=== PATIENT | female | born 1975 | race Caucasian/White ===

== ENCOUNTER 2018-04-04 00:28 | Emergency (ER) | payer BC ==
--- NOTE | 2018-04-04 00:41 | EDPHY ---
H & P Stated Complaint: ALLERGIC RX, DIFF SWALLOW/TO CHEMO MED Time Seen by Provider: 04/04/18 00:41 HPI/ROS: HPI CHIEF COMPLAINT: Allergic reaction, itchy rash HISTORY OF PRESENT ILLNESS: Very pleasant 42-year-old female, she has a history of breast cancer currently getting chemotherapy, Dr. De Luna is her oncologist. She has had bilateral mastectomy. In the past she has had allergic reaction to her chemotherapy. She states she woke up this morning around 7:00 a.m. With hives. She took Benadryl, Zantac, and Decadron. States she took this around 830 last night. It is now 12 50 in the morning. Her hives persisted and she is very itchy. Also reports that felt some pain in the back with her when she swallowed. Due to this she decided come the emergency room for evaluation. She has no trouble swelling. No trouble breathing. She does have hives urticaria throughout her skin. No wheezing. No chest pain. Oncologist is Dr. De Luna. Past Medical History: Breast cancer getting chemotherapy Past Surgical History: Bilateral mastectomy Social History: Denies drugs alcohol tobacco. Family History: Noncontributory ROS REVIEW OF SYSTEMS: 10 Systems were reviewed and negative with the exception of the elements mentioned in the history of present illness. Exam Constitutional triage nursing summary reviewed, vital signs reviewed, awake/ alert. Eyes normal conjunctivae and sclera, EOMI, PERRLA. HENT no stridor, no trouble breathing, no trouble swallowing, no pharyngeal swelling, normal inspection, atraumatic, moist mucus membranes, no epistaxis, neck supple/ no meningismus, no raccoon eyes. Respiratory clear to auscultation bilaterally, normal breath sounds, no respiratory distress, no wheezing. Cardiovascular rate normal, regular rhythm, no murmur, no edema, distal pulses normal. Gastrointestinal soft, non-tender, no rebound, no guarding, normal bowel sounds, no distension, no pulsatile mass. Genitourinary no CVA tenderness. Musculoskeletal no midline vertebral tenderness, full range of motion, no calf swelling, no tenderness of extremities, no meningismus, good pulses, neurovascularly intact. Skin Diffuse Urticaria. Neurologic awake, alert and oriented x 3, AAOx3, moves all 4 extremities equally, motor intact, sensory intact, CN II-XII intact, normal cerebellar, normal vision, normal speech. Psychiatric normal mood/affect. Heme/Lymph/Immune no lymphadenopathy. Differential Diagnosis: Includes but is not limited to in a particular order allergic reaction, anaphylaxis, severe allergic reaction, hives Medical Decision Making: Plan for this patient IV establishment blood draw, IV Solu-Medrol, IV Benadryl, IV Pepcid. IV fluids. Basic blood work and close monitoring. Re-evaluation: 0436: Patient is feeling better and requesting discharge. No further progression of allergic reaction she has been monitored for over 4 hr. She feels much better. No trouble swallowing or trouble breathing. The urticaria or hives have improved. Recommend she follows up with her oncologist. Return precautions discussed with her. Source: Patient - Personal History LMP (Females 10-55): 22-28 Days Ago Current Tetanus Diphtheria and Acellular Pertussis (TDAP): Yes - Medical/Surgical History Hx Asthma: No Hx Chronic Respiratory Disease: No Hx Diabetes: No Hx Cardiac Disease: No Hx Renal Disease: No Hx Cirrhosis: No Hx Alcoholism: No Hx HIV/AIDS: No Hx Splenectomy or Spleen Trauma: No Other PMH: L BREAST CA W/ DOUBLE MASTECTOMY, LYMPH NODES REMOVED ON L NO BP OR STICKS ON L - Social History Smoking Status: Never smoked Constitutional: Initial Vital Signs Temperature (C) 37.3 C 04/04/18 00:32 Heart Rate 110 H 04/04/18 00:32 Respiratory Rate 16 04/04/18 00:32 Blood Pressure 130/92 H 04/04/18 00:32 O2 Sat (%) 96 04/04/18 00:32 O2 Delivery Mode Room Air Allergies/Adverse Reactions: tetracycline Allergy (Verified 04/04/18 00:37) Home Medications: Medication Instructions Recorded Ibuprofen [Motrin (*)] 600 mg PO Q6 #15 tab 06/05/16 Claritin 04/04/18 Compazine 10mg (*) 04/04/18 DEXAMETHASONE 04/04/18 diphenhydrAMINE [Benadryl 25 MG 25 mg PO BID #6 tab 04/04/18 (*)] predniSONE 60 mg PO DAILY #9 tab 04/04/18 Medical Decision Making - Data Points Laboratory Results: Laboratory Results 04/04/18 00:49 04/04/18 00:49 04/04/18 04/04/18 00:49 00:49 WBC 22.88 10^3/uL H 10^3/uL (3.80-9.50) RBC 4.13 10^6/uL L 10^6/uL (4.18-5.33) Hgb 12.5 g/dL L g/dL (12.6-16.3) Hct 37.3 % L % (38.0-47.0) MCV 90.3 fL fL (81.5-99.8) MCH 30.3 pg pg (27.9-34.1) MCHC 33.5 g/dL g/dL (32.4-36.7) RDW 16.1 % H % (11.5-15.2) Plt Count 151 10^3/uL 10^3/uL (150-400) MPV 10.6 fL fL (8.7-11.7) Neut % (Auto) Not Reported Lymph % (Auto) Not Reported Jennings % (Auto) Not Reported Eos % (Auto) Not Reported Baso % (Auto) Not Reported Nucleat RBC Rel Count Not Reported Absolute Neuts (auto) Not Reported Absolute Lymphs (auto) Not Reported Absolute Monos (auto) Not Reported Absolute Eos (auto) Not Reported Absolute Basos (auto) Not Reported Absolute Nucleated RBC Not Reported Immature Gran % Not Reported Seg Neutrophils % 75.8 % % Band Neutrophils % 15.1 % % Lymphocytes % 2.0 % % Monocytes % 6.1 % % Eosinophils % 0.0 % % Basophils % 0.0 % % Metamyelocytes % 0.0 % % Myelocytes % 0.0 % % Promyelocytes % 1.0 % % Blast Cells % 0.0 % % Immature Gran # Not Reported Absolute Seg Neuts 17.34 10^/uL H 10^/uL (1.70-6.50) Absolute Band Neuts 3.45 10^3/uL H 10^3/uL (0.00-0.70) Absolute Lymphocytes 0.46 10^3/uL L 10^3/uL (1.00-3.00) Absolute Monocytes 1.40 10^3/uL H 10^3/uL (0.30-0.80) Absolute Eosinophils 0.00 10^3/uL L 10^3/uL (0.03-0.40) Absolute Basophils 0.00 10^3/uL L 10^3/uL (0.02-0.10) Absolute Metamyelocyte 0.00 10^3/mL 10^3/mL (0.00-0.00) Absolute Myelocytes 0.00 10^3/mL 10^3/mL (0.00-0.00) Absolute Promyelocytes 0.23 10^3/uL H 10^3/uL (0.00-0.00) Absolute Plasma Cells 0.00 10^3/uL 10^3/uL (0.00-0.00) Nucleated RBCs 0 /100 WBC /100 WBC (0-0) Absolute Blast Cells 0.00 10^3/uL 10^3/uL (0.00-0.00) Plasma Cells % 0.0 % % Toxic Granulation PRESENT H Dohle Bodies PRESENT H Platelet Estimate ADEQUATE (ADEQ) Polychromasia 1+ H Microcytic Cells 1+ H Harper-Wakeeney Bodies 1+ H Smear Review By Pending Sodium 143 mEq/L mEq/L (135-145) Potassium 4.5 mEq/L mEq/L (3.3-5.0) Chloride 109 mEq/L mEq/L (97-110) Carbon Dioxide 23 mEq/l mEq/l (22-31) Anion Gap 12 mEq/L mEq/L (8-16) BUN 10 mg/dL mg/dL (7-23) Creatinine 0.8 mg/dL mg/dL (0.6-1.0) Estimated GFR > 60 Glucose 125 mg/dL H mg/dL (70-100) Calcium 9.6 mg/dL mg/dL (8.5-10.4) Medications Given: Discontinued Medications Diphenhydramine HCl (Benadryl Injection) 50 mg IVP EDNOW ONE Stop: 04/04/18 00:51 Last Admin: 04/04/18 01:02 Dose: 50 mg Famotidine (Pepcid) 20 mg IVP EDNOW ONE Stop: 04/04/18 00:51 Last Admin: 04/04/18 01:02 Dose: 20 mg Sodium Chloride (Ns) 1,000 mls @ 0 mls/hr IV EDNOW ONE; Wide Open PRN Reason: Protocol Stop: 04/04/18 00:51 Last Admin: 04/04/18 01:00 Dose: 1,000 mls Methylprednisolone Sodium Succinate (Solu-Medrol) 125 mg IVP EDNOW ONE Stop: 04/04/18 00:51 Last Admin: 04/04/18 01:02 Dose: 125 mg Departure - Departure Disposition: Home, Routine, Self-Care Clinical Impression: Allergic reaction Qualifiers: Encounter type: initial encounter Qualified Code(s): T78.40XA - Allergy, unspecified, initial encounter Condition: Good Instructions: Urticaria (ED), Allergies (ED) Additional Instructions: 1. Return emergency room if you have progression of her symptoms. 2. Follow up with your oncologist. Referrals: OZIEL CABRALES [Other] - As per Instructions Prescriptions: diphenhydrAMINE [Benadryl 25 MG (*)] 25 mg PO BID #6 tab predniSONE 60 mg PO DAILY #9 tab
[2018-04-04] MEDS ORDERED: FAMOTIDINE 20 MG/2 ML SDV IVP ONE (00:50)
[2018-04-04] MEDS ORDERED: methylPREDNISolone SOD SUCC 125 MG/2 ML VIAL IVP ONE (00:50)
[2018-04-04] MEDS ORDERED: NS 1,000 ML IV ONE (00:50)
[2018-04-04 01:37] LABS: PLATELET COUNT 151 10^3/uL (150-400)
[2018-04-04 04:59] VITALS: BP 99/67
== END 2018-04-04 04:59 | disposition home or self-care (01) ==
DX: T78.40XA Allergy, unspecified, initial encounter (principal); L50.0 Allergic urticaria; Z85.3 Personal history of malignant neoplasm of breast; Z90.13 Acquired absence of bilateral breasts and nipples
CPT/HCPCS: 96374; J1200; J2930

== ENCOUNTER 2018-04-05 22:07 | Observation (INO) | payer BC ==
--- NOTE | 2018-04-05 22:29 | EDPHY ---
H & P Stated Complaint: allergic reaction since wednesday worst now having difficulty breathing - Personal History LMP (Females 10-55): 15-21 Days Ago Current Tetanus/Diphtheria Vaccine: Yes Current Tetanus Diphtheria and Acellular Pertussis (TDAP): Yes - Medical/Surgical History Hx Asthma: No Hx Chronic Respiratory Disease: No Hx Diabetes: No Hx Cardiac Disease: No Hx Renal Disease: No Hx Cirrhosis: No Hx Alcoholism: No Hx HIV/AIDS: No Hx Splenectomy or Spleen Trauma: No Other PMH: L BREAST CA W/ DOUBLE MASTECTOMY, LYMPH NODES REMOVED ON L NO BP OR STICKS ON L - Social History Smoking Status: Never smoked Time Seen by Provider: 04/05/18 22:15 HPI/ROS: CHIEF COMPLAINT: "I have hives" HISTORY OF PRESENT ILLNESS: 42-year-old female history of breast cancer currently receiving chemotherapy last received on March [address] Kel salazar, seen the ER 24 hr ago for complaints of new onset urticaria given H1 H2 blockers and Solu-Medrol and discharged, saw her oncologist today given further IV infusion of Decadron and Benadryl all, returns to the ER complaining of progressively worsening urticaria. Also notes a new lesion on the palate of her oropharynx as well as new left lower lip swelling. No diarrhea. No nausea or vomiting. No dysuria. No increased frequency. No fever or chills. No flu-like symptoms. No headache. REVIEW OF SYSTEMS: 10 systems reviewed and negative with the exception of the elements mentioned in the history of present illness PAST MEDICAL & SURGICAL HISTORY: Currently receiving treatment for breast cancer. Mastectomy. SOCIAL HISTORY:no alcohol or drug use PHYSICAL EXAM (Prior to examination, patient consented to physical exam, hands were washed and my usual and customary physical exam procedures followed) 1) GENERAL: Well-developed, well-nourished, alert and oriented. Appears to be in no acute distress. 2) HEAD: Normocephalic, atraumatic 3) HEENT: Pupils equal, round, reactive to light bilaterally. Sclera anicteric. Oropharynx: Palate area of erythema noted. No lesion no apthous ulcer. Lower lip edema noted. No trismus no drooling 4) NECK: Full range of motion, no meningeal signs. 5) LUNGS: Clear auscultation bilaterally, no wheezes, no rhonchi, no retractions. No signs of airway compromise. 6) HEART: Regular rate and rhythm, no murmur, no heave, no gallop. 7) ABDOMEN: No guarding, no rebound, no focal tenderness, negative McBurney's, negative Nieto's, negative Rovsing's, negative peritoneal sign, 8) MUSCULOSKELETAL: Moving all extremities, no focal areas of tenderness, no obvious trauma. No peripheral edema or discoloration. 9) BACK: No CVA tenderness, no midline vertebral tenderness, no fluctuance, no step-off, no obvious trauma, no visual or palpable abnormality. 10) SKIN: Diffuse urticaria particularly to the bilateral arms and legs 11) Psychiatric: Patient is oriented X 3, there is no agitation. DIFFERENTIAL DIAGNOSIS: In no particular order including but not limited to medication adverse reaction, urticaria, angioedema, anaphylaxis (Jorge Luis,Angelina Genet) Constitutional: Initial Vital Signs Temperature (C) 37.4 C 04/05/18 22:09 Heart Rate 78 04/05/18 22:09 Respiratory Rate 18 04/05/18 22:09 Blood Pressure 106/82 H 04/05/18 22:09 O2 Sat (%) 100 04/05/18 22:09 O2 Delivery Mode Room Air Allergies/Adverse Reactions: tetracycline Allergy (Verified 04/06/18 08:32) Rash Home Medications: Medication Instructions Recorded Dexamethasone [Decadron 4 MG (*)] 8 mg PO AD 04/04/18 Clobetasol 0.05% [Temovate 1 ivanna TP BID PRN 04/06/18 Ointment] Cyclophosphamide [Cytoxan] 0 mg IV .[id number] 04/06/18 DOCEtaxel [TaxoTERE] 0 mg IV .[id number] 04/06/18 Pegfilgrastim [Neulasta 6mg (RX)] 6 mg SQ .[id number] 04/06/18 Prochlorperazine Maleate 10 mg PO Q8HRS PRN 04/06/18 [Compazine 10mg (*)] diphenhydrAMINE [Benadryl 25 MG 50 mg PO Q6HRS 04/06/18 (*)] Famotidine [Acid Controller] 20 mg PO BID #60 tablet 04/07/18 hydrOXYzine HCL 10 mg PO Q8H PRN #30 tab 04/07/18 predniSONE 20 mg PO DAILY #15 tablet 04/07/18 Medical Decision Making ED Course/Re-evaluation: 10:29 p.m.: I reviewed the patient's old medical records. Patient was also seen exam by Dr. Benny Garcia. Doubt anaphylaxis. Recommending admission given the patient's failure of outpatient therapy and progressive symptoms. Will administer H1 H2 blockers, Solu-Medrol, IV fluids. 11:36 p.m.: Phone consultation with hospitalist Dr. Marvin who will admit patient primarily. Awaiting callback from Oncology. 1150 pm: Oncology re-paged, awaiting callback 12:15 p.m.: Awaiting callback from Oncology who has been paged again (Angelina Kang) - Data Points Laboratory Results: Laboratory Results 04/05/18 22:35 04/05/18 22:35 Medications Given: Discontinued Medications Diphenhydramine HCl (Benadryl Injection) 25 mg IVP EDNOW ONE Stop: 04/05/18 23:00 Last Admin: 04/05/18 23:08 Dose: 25 mg Diphenhydramine HCl (Benadryl Injection) 50 mg IVP EDNOW ONE Stop: 04/05/18 23:00 Last Admin: 04/05/18 23:08 Dose: Not Given Diphenhydramine HCl (Benadryl Injection) 25 mg IVP Q4HRS PRN PRN Reason: Itching Stop: 10/02/18 23:36 Last Admin: 04/06/18 09:41 Dose: 25 mg Diphenhydramine HCl (Benadryl Injection) 25 mg IVP ONCE ONE Stop: 04/06/18 04:43 Last Admin: 04/06/18 04:49 Dose: 25 mg Diphenhydramine HCl (Benadryl Cream) 1 ivanna TP QID PRN PRN Reason: Itching Stop: 10/03/18 09:28 Last Admin: 04/06/18 21:27 Dose: 1 ivanna Diphenhydramine HCl (Benadryl Injection) 25 mg IVP Q8H PRN PRN Reason: Itching Stop: 10/03/18 17:59 Last Admin: 04/07/18 04:18 Dose: 25 mg Enoxaparin Sodium (Lovenox) 40 mg SC Q12 JAYNA Stop: 10/03/18 08:59 Last Admin: 04/07/18 08:36 Dose: Not Given Hydroxyzine HCl (Hydroxyzine Hcl) 10 mg PO Q8H PRN PRN Reason: Itching Stop: 10/03/18 13:59 Last Admin: 04/07/18 08:15 Dose: 10 mg Sodium Chloride (Ns) 1,000 mls @ 0 mls/hr IV ONCE ONE; Wide Open PRN Reason: Protocol Stop: 04/05/18 23:00 Last Admin: 04/05/18 23:07 Dose: 1,000 mls Famotidine/Sodium Chloride (Pepcid 20 Mg (Premix)) 50 mls @ 200 mls/hr IV Q12HRS REPLACED BY [facility] Stop: 10/03/18 08:59 Last Admin: 04/07/18 08:21 Dose: 50 mls Lorazepam (Ativan Injection) 1 mg IVP Q4HRS PRN PRN Reason: Anxiety, Unable to Take PO Stop: 10/03/18 01:13 Last Admin: 04/06/18 01:52 Dose: 1 mg Methylprednisolone Sodium Succinate (Solu-Medrol) 125 mg IVP EDNOW ONE Stop: 04/05/18 23:00 Last Admin: 04/05/18 23:08 Dose: 125 mg Methylprednisolone Sodium Succinate (Solu-Medrol) 60 mg IVP Q6HRS REPLACED BY [facility] Stop: 10/03/18 04:59 Last Admin: 04/07/18 13:02 Dose: Not Given Prednisone (Prednisone) 60 mg PO ONCE ONE Stop: 04/07/18 12:54 Last Admin: 04/07/18 13:00 Dose: 60 mg Ranitidine HCl (Zantac) 50 mg IVP EDNOW ONE Stop: 04/05/18 23:00 Last Admin: 04/05/18 23:08 Dose: 50 mg Departure - Departure Disposition: [facility] Acute Clinical Impression: Urticaria, History of breast cancer Condition: Fair
[2018-04-05] MEDS ORDERED: methylPREDNISolone SOD SUCC 125 MG/2 ML VIAL IVP ONE (22:59)
[2018-04-05] MEDS ORDERED: NS 1,000 ML IV ONE (22:59)
[2018-04-05] MEDS ORDERED: RANITIDINE 50 MG/2 ML VIAL IVP ONE (22:59)
[2018-04-05 23:10] LABS: PLATELET COUNT 98 10^3/uL (150-400)
[2018-04-05] MEDS ORDERED: ONDANSETRON 4 MG/2 ML VIAL IVP PRN (23:35)
[2018-04-05] MEDS ORDERED: ONDANSETRON DISINTEGRATING 4 MG TAB PO PRN (23:35)
[2018-04-05] MEDS ORDERED: ACETAMINOPHEN 325 MG TAB PO PRN (23:35)
--- NOTE | 2018-04-06 00:39 | PDGENHP ---
History and Physical - Chief Complaint Hives - History of Present Illness 42 yo F w/ hx of breast CA presents with hives. Patient has experienced progressive hives and itching since Wednesday morning. She first noticed symptoms on her lips and head but since hives have spread to cover much of her body. Attempts were made to treat this as an outpatient with prednisone and Benadryl but her symptoms have progressed regardless. She complains mostly of itching but does have mild dysphagia as well. She denies any difficulty breathing at the moment. Case discussed with ED SHAUN Kang, records reviewed in EMR. History Information - Allergies/Home Medication List Allergies/Adverse Reactions: tetracycline Allergy (Verified 04/05/18 22:12) Home Medications: Claritin 04/04/18 [Last Taken Unknown] Compazine 10mg (*) 04/04/18 [Last Taken Unknown] DEXAMETHASONE 04/04/18 [Last Taken Unknown] I have personally reviewed and updated: family history, medical history - Past Medical History cancer - Surgical History Additional surgical history: Double mastectomy - Family History Positive for: diabetes type II - Social History Smoking Status: Never smoked Review of Systems Review of Systems: ROS: 10pt was reviewed & negative except for what was stated in HPI & below Physical Exam Physical Exam: Temp Pulse Resp BP Pulse Ox 37.4 C 78 18 106/82 H 100 04/05/18 22:09 04/05/18 22:09 04/05/18 22:09 04/05/18 22:09 04/05/18 22:09 Constitutional: appears nourished, uncomfortable Eyes: PERRL, EOMI Ears, Nose, Mouth, Throat: moist mucous membranes, other (Mild erythematous lesion on palate) Cardiovascular: regular rate and rhythym, no murmur, rub, or gallop Respiratory: no respiratory distress, clear to auscultation Gastrointestinal: normoactive bowel sounds, soft, non-tender abdomen Skin: warm, rash (Diffuse erythematous plaques) Musculoskeletal: full muscle strength, no muscle tenderness Neurologic: AAOx3, CN II-XII Intact Psychiatric: interacting appropriately, not anxious Lab Data & Imaging Review 04/05/18 22:35 04/05/18 22:35 WBC 23.34 10^3/uL (3.80-9.50) H 04/05/18 22:35 RBC 3.89 10^6/uL (4.18-5.33) L 04/05/18 22:35 Hgb 11.7 g/dL (12.6-16.3) L 04/05/18 22:35 Hct 34.9 % (38.0-47.0) L 04/05/18 22:35 MCV 89.7 fL (81.5-99.8) 04/05/18 22:35 MCH 30.1 pg (27.9-34.1) 04/05/18 22:35 MCHC 33.5 g/dL (32.4-36.7) 04/05/18 22:35 RDW 16.4 % (11.5-15.2) H 04/05/18 22:35 Plt Count 98 10^3/uL (150-400) L 04/05/18 22:35 MPV 10.8 fL (8.7-11.7) 04/05/18 22:35 Neut % (Auto) Not Reported 04/05/18 22:35 Lymph % (Auto) Not Reported 04/05/18 22:35 [place] % (Auto) Not Reported 04/05/18 22:35 Eos % (Auto) Not Reported 04/05/18 22:35 Baso % (Auto) Not Reported 04/05/18 22:35 Nucleat RBC Rel Count Not Reported 04/05/18 22:35 Absolute Neuts (auto) Not Reported 04/05/18 22:35 Absolute Lymphs (auto) Not Reported 04/05/18 22:35 Absolute Monos (auto) Not Reported 04/05/18 22:35 Absolute Eos (auto) Not Reported 04/05/18 22:35 Absolute Basos (auto) Not Reported 04/05/18 22:35 Absolute Nucleated RBC Not Reported 04/05/18 22:35 Immature Gran % Not Reported 04/05/18 22:35 Seg Neutrophils % 77.0 % 04/05/18 22:35 Band Neutrophils % 15.0 % 04/05/18 22:35 Lymphocytes % 6.0 % 04/05/18 22:35 Monocytes % 2.0 % 04/05/18 22:35 Eosinophils % 0.0 % 04/05/18 22:35 Basophils % 0.0 % 04/05/18 22:35 Metamyelocytes % 0.0 % 04/05/18 22:35 Myelocytes % 0.0 % 04/05/18 22:35 Promyelocytes % 0.0 % 04/05/18 22:35 Blast Cells % 0.0 % 04/05/18 22:35 Immature Gran # Not Reported 04/05/18 22:35 Absolute Seg Neuts 17.97 10^/uL (1.70-6.50) H 04/05/18 22:35 Absolute Band Neuts 3.50 10^3/uL (0.00-0.70) H 04/05/18 22:35 Absolute Lymphocytes 1.40 10^3/uL (1.00-3.00) 04/05/18 22:35 Absolute Monocytes 0.47 10^3/uL (0.30-0.80) 04/05/18:35 Absolute Eosinophils 0.00 10^3/uL (0.03-0.40) L 04/05/18 22:35 Absolute Basophils 0.00 10^3/uL (0.02-0.10) L 04/05/18 22:35 Absolute Metamyelocyte 0.00 10^3/mL (0.00-0.00) 04/05/18 22:35 Absolute Myelocytes 0.00 10^3/mL (0.00-0.00) 04/05/18 22:35 Absolute Promyelocytes 0.00 10^3/uL (0.00-0.00) 04/05/18:35 Absolute Plasma Cells 0.00 10^3/uL (0.00-0.00) 04/05/18:35 Nucleated RBCs 0 /100 WBC (0-0) 04/05/18:35 Absolute Blast Cells 0.00 10^3/uL (0.00-0.00) 04/05/18:35 Plasma Cells % 0.0 % 04/05/18:35 Toxic Granulation PRESENT H 04/05/18 22:35 Platelet Estimate DECREASED (ADEQ) L 04/05/18 22:35 Polychromasia 1+ H 04/05/18 22:35 Sodium 139 mEq/L (135-145) 04/05/18 22:35 Potassium 3.7 mEq/L (3.3-5.0) 04/05/18 22:35 Chloride 111 mEq/L (97-110) H 04/05/18 22:35 Carbon Dioxide 19 mEq/l (22-31) L 04/05/18 22:35 Anion Gap 9 mEq/L (8-16) 04/05/18 22:35 BUN 16 mg/dL (7-23) 04/05/18 22:35 Creatinine 0.8 mg/dL (0.6-1.0) 04/05/18 22:35 Estimated GFR > 60 04/05/18 22:35 Glucose 98 mg/dL (70-100) 04/05/18 22:35 Calcium 9.1 mg/dL (8.5-10.4) 04/05/18 22:35 Assessment & Plan Assessment: 42 yo F w breast CA presents with acute urticaria. Plan: 1. Acute urticaria - Unclear etiology, could be delayed type hypersensitivity to chemotherapy regimen (docetaxel, cyclophosphamide received on 03/23). She denies any medication use aside from multivitamin prior to onset. Her symptoms have progressed despite outpatient treatment. No signs of fever or other systemic organ involvement at this time (renal function normal, no respiratory distress). No significant mucous membrane involvement at this time. Eosinophil count not elevated. - Admit for observation - Methylprednisolone, famotidine, Benadryl IV - Oncology consultation placed 2. Breast CA - S/p double mastectomy, currently undergoing chemotherapy. Last treatment on 03/23. - Oncology consult 3. Leukocytosis - I suspect this is related to steroid therapy as an outpatient. Afebrile without localizing symptoms of infection at this time. - Monitor for signs of infection Diet - Regular Code - Full Ppx - LMWH Dispo - Admit under observation status
[2018-04-06] MEDS ORDERED: LORazepam 2 MG/ML INJ IVP PRN (01:14)
[2018-04-06] MEDS: methylPREDNISolone SOD SUCC 125 MG/2 ML VIAL IVP SCH ×3 (04:44→17:43)
[2018-04-06 05:10] LABS: PLATELET COUNT 82 10^3/uL (150-400)
[2018-04-06] MEDS: FAMOTIDINE 20 MG/NACL 50 ML IV SCH ×2 (09:47→21:33)
[2018-04-06] MEDS: ENOXAPARIN 40 MG/0.4 ML SYR SC SCH (09:47)
[2018-04-06] MEDS: DIPHENHYDRAMINE CREAM TP PRN ×2 (10:15→21:27)
[2018-04-06] MEDS: hydrOXYzine HCL 10 MG TAB PO PRN ×2 (12:56→21:26)
--- NOTE | 2018-04-06 13:32 | ASMTCMCOM ---
CM Note CM Note Notes: Patient plan of care reviewed in interdisciplinary rounds. She is s/p chemo and developed uticaria. Symptom management includes steroids and benadryl po and topically. Met with patient and her . They have three children and her mother is here helping. The patient works from home. She was diagnosed in October and had mastectomies in November. She is being treated at [facility] by Dr. De Luna. She has not yet connected with Caity Cárdenas. No current needs identified. CM to follow. Plan: TBD Date Signed: 04/06/2018 01:16 PM Electronically Signed By:Jody Paez RN
[2018-04-06] MEDS ORDERED: PROCHLORPERAZINE MALEATE 10 MG TAB PO PRN (15:35)
--- NOTE | 2018-04-06 15:55 | HOSPPROG ---
Hospitalist Progress Note Assessment/Plan: #Urtica: suspect related to chemo-related. Airway patent, no stridor or mucosal involvement -IV Solumedrol, H2-lucy, Benadryl cream #Breast cancer -Docetaxel/Cisplatin 03/23 #Leukocytosis: from steroids #Diet: regular #DVT ppx: SCDs #Disp: obs status; DC tomorrow if clinically improved Direct patient care: [id number] with patient evaluating, reviewing records, labs 9:00am-9:30am Subjective: "arms on fire" Objective: Vital Signs Temp Pulse Resp BP Pulse Ox 36.7 C 56 L 16 101/66 94 04/06/18 15:23 04/06/18 15:23 04/06/18 15:23 04/06/18 15:23 04/06/18 15:23 Laboratory Results 04/06/18 04:16 04/06/18 04:16 04/05/18 04/06/18 04/07/18 05:59 05:59 05:59 Intake Total 1000 Balance 1000 - Physical Exam Constitutional: uncomfortable Eyes: PERRL, other Ears, Nose, Mouth, Throat: moist mucous membranes, other (small red lesion on palate, no raised) Cardiovascular: regular rate and rhythym Respiratory: no respiratory distress, other (no stridor) Gastrointestinal: normoactive bowel sounds, soft, non-tender abdomen Genitourinary: No orozco in urethra Skin: other (diffuse hives over arms, neck and head) Musculoskeletal: full muscle strength Neurologic: AAOx3, CN II-XII Intact Psychiatric: interacting appropriately ICD10 Worksheet Patient Problems: Problems Problem Status Onset History of breast cancer Acute Urticaria Acute
--- NOTE | 2018-04-06 16:53 | PDCONSULT ---
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 Patient was diagnosed with breast cancer after screening mammography on 2017. This showed left breast focal asymmetry that required further imaging. A diagnostic mammograms with 10 mm hypoechoic mass in the left breast at the 1 o 'clock position located 13 cm from the nipple biopsy at this site showed invasive ductal carcinoma grade 1 ER +100% ME +90% moderate with a Ki-67 25% HER -2 was negative by fish she had bilateral mastectomy November 30, 2017 with the primary tumor being 19 mm T1b N0 grade 1 with 2 negative sentinel lymph nodes all margins were clear her Oncotype was intermediate at 24. She received her third cycle decision was made to pursue 4 cycles of adjuvant TC. She received her third dose on March 23, 2018 and developed a rash under the chin shortly thereafter she went on prednisone 60 mg for 3 days but had more hives under the arms without any other symptoms she did have stridor or wheezing. She saw a nurse practitioner on 04/05/2018. They continue the prednisone 60 mg daily for 3 days and 40 mg daily for 3 days and 20 mg daily for 3 days on a taper she was also continued on Benadryl 50 mg every 6 hours for the next 24 hours she was also put on Vistaril 25 mg 3 times a day as needed. She was told to return the emergency room should she develop any difficulty breathing or worsening in rash. Last night before presentation to the emergency room she did develop some trouble swallowing as well as shortness of breath so she went to the emergency room. Past medical history: Stage IA left-sided breast cancer as above with intermediate Oncotype score ER ME strongly positive Past surgical history: Bilateral mastectomy November 30, 2017 Social history: No history of alcohol drugs or tobacco. Family history: No significant past medical history Physical examination: Vital signs reviewed General: Nontoxic-appearing discouraged female HEENT pupils are equal round reactive to light no scleral icterus or conjunctival pallor is appreciated, no oropharyngeal swelling no lingular swelling Mallampati 2. No stridor Neck: Supple Cardiovascular: Regular rate and rhythm without rubs thrills gallops or murmurs Chest: Clear to auscultation and percussion in bilateral posterior lungs without any evidence of wheeze Abdomen: Soft nontender no hepatosplenomegaly was appreciated Extremities: Warm well perfused 2+ dorsalis pedis and radial pulses bilaterally no lower extremity edema Skin: Significant areas of urticarial rash on the posterior scalp under both arms and on the chest fewer on the lower extremities in particular behind the knees Assessment & Plan Assessment: History of breast cancer (Acute) Urticaria (Acute) Patient is a 42-year-old female with a stage I a left-sided ER ME positive HER- 2 negative breast cancer who presents with progressive urticaria since her third cycle of TC on March 23, 2018. Problem #1- Urticaria This is most likely related to docetaxel. In particular not the drug itself but the Cremophor use to improve solubility of the drug. Thankfully patient does not have any evidence of stridor wheeze or pharyngeal edema. Recommend continuing systemic steroids H1 and H2 blockade until symptoms have resolved. Problem #2 - Stage I a left-sided ER ME positive HER-2 negative breast cancer with intermediate Oncotype score. Options for this patient include using Abraxane for her fourth and final cycle with carboplatin versus omitting the fourth cycle altogether given the recent tailorx trial which showed women with intermediate Oncotype scores did not benefit from chemotherapy. Another approach could be using a desensitization protocol. Either way she is at low risk for breast cancer recurrence. Tera Gomes
[2018-04-06] MEDS ORDERED: FAMOTIDINE 20 MG TAB PO PRN (21:00)
[2018-04-07] MEDS: ENOXAPARIN 40 MG/0.4 ML SYR SC SCH ×2 (00:02→08:36)
[2018-04-07] MEDS: methylPREDNISolone SOD SUCC 125 MG/2 ML VIAL IVP SCH ×3 (00:06→13:02)
[2018-04-07 07:44] VITALS: BP 115/80
[2018-04-07] MEDS: hydrOXYzine HCL 10 MG TAB PO PRN (08:15)
[2018-04-07] MEDS: FAMOTIDINE 20 MG/NACL 50 ML IV SCH (08:21)
--- NOTE | 2018-04-07 12:28 | ASMTLACE ---
LACE Length of stay for Answers: 3 days current admission Acuity / Level of Answers: No Care: Did the patient have an inpatient admission? Comorbidities - select Answers: Any tumor (including all that apply lymphoma or leukemia) # of Emergency department Answers: 1-2 visits in the last 6 months Score: 6 Date Signed: 04/07/2018 12:28 PM Electronically Signed By:RICHIE Gardner
--- NOTE | 2018-04-07 12:31 | ASDISCHSUM ---
Discharge Information Plan Status:Home with No Needs Medically Cleared to Leave:04/07/2018 Discharge Date:04/07/2018 CM D/C Disposition:Home, Routine, Self-Care ADT D/C Disposition:Home, Routine, Self-Care Projected Discharge Date:04/07/2018 Transportation at D/C:Family Discharge Delay Reason: Follow-Up Date:04/07/2018 Discharge Slot: Final Diagnosis: Placement Information Patient Contact Information Contact Name:CYN Relationship: Address:[address] Work Phone: Alex:TANISHA Jones Phone: State/Zip Code:[place] [address] Email: Financial Information Financial Class:BC Primary Plan Desc: OUT OF STATE [facility] Primary Plan Number:[id number] Secondary Plan Desc: Secondary Plan Number: Assessment Information LACE LACE Length of stay for Answers: 3 days current admission Acuity / Level of Answers: No Care: Did the patient have an inpatient admission? Comorbidities - select Answers: Any tumor (including all that apply lymphoma or leukemia) # of Emergency department Answers: 1-2 visits in the last 6 months Score: 6 Date Signed: 04/07/2018 12:28 PM Electronically Signed By:RICHIE Gardner [facility] CM Progress Note CM Note CM Note Notes: Patient plan of care reviewed in interdisciplinary rounds. She is s/p chemo and developed uticaria. Symptom management includes steroids and benadryl po and topically. Met with patient and her . They have three children and her mother is here helping. The patient works from home. She was diagnosed in October and had mastectomies in November. She is being treated at [facility] by Dr. De Luna. She has not yet connected with Caity Cárdenas. No current needs identified. CM to follow. Plan: TBD Date Signed: 04/06/2018 01:16 PM Electronically Signed By:Jody Paez RN Case Management Discharge Plan Note Case Management Discharge Discharge Order Complete? Answers: Yes Patient to Obtain Answers: Independently Medications Transportation Arranged Answers: Family/Friends Discharge Comments Notes: Pt is medically cleared for discharge. She is discharging home with her and no CM needs. Date Signed: 04/07/2018 12:30 PM Electronically Signed By:RICHIE Gardner Intervention Information
[2018-04-07] MEDS ORDERED: predniSONE 20 MG TAB PO ONE (12:53)
--- NOTE | 2018-04-07 13:48 | GDS ---
DISCHARGE DIAGNOSES: 1. Stage I, ER/KY positive breast cancer, status post third cycle of TC. 2. Urticaria. 3. Dysphagia. CONSULTATIONS: Oncology. HPI: A pleasant 42-year-old female with history of stage I ER/KY positive, HER2 negative breast cancer, status post third cycle of TC. She quickly developed a rash on the chin and was started on prednisone for 3 days, but then developed more hives on her arms. She saw a nurse practitioner 04/05 and told to continue her prednisone given she had stridor and wheezing and was also started on Benadryl. Night of admission she developed some trouble swallowing and shortness of breath. HOSPITAL COURSE BY PROBLEM: 1. Urticaria: Related to docetaxel. No evidence of stridor or pharyngeal edema. Shortness of breath is resolved with high-dose Solu-Medrol. She will be transitioned to a prednisone taper for the next week, along with Atarax, scheduled famotidine, and calamine cream. 2. Stage II left ER/KY positive, HER2 negative breast cancer: Will need to follow up with her oncologist for the best chemo to avoid further reaction. DISPOSITION: Patient is stable for discharge home. NEW MEDICATIONS: 1. Prednisone taper. 2. Atarax. 3. Famotidine. FOLLOWUP: Her primary oncologist. PHYSICAL EXAMINATION: VITAL SIGNS: Today, temperature 36.6, blood pressure is 159/80, heart rate is in the 50s, respirations 14, 91 on room air. GENERAL: More comfortable today. HEENT: PERRLA. No oral lesions. CV: Regular rate and rhythm. LUNGS: No stridor. Lungs are clear. ABDOMEN: Soft, nontender, nondistended. Positive bowel sounds. : No Ignacio. MUSCULOSKELETAL: 5/5 upper and lower extremity strength. SKIN: Some erythema over chest and upper back, but multiple hives over extremities have much improved. She does have some excoriations of her arms from scratching. NEURO: 2 through 12 intact. PSYCH: Alert and oriented x3. Time spent on discharge greater than 30 minutes, counseling patient on medications, and return precautions. /[id number]/MODL MTDD
== END 2018-04-07 15:15 | disposition home or self-care (01) ==
LOC: F1N 04-06 00:20
PROVIDERS: ADMIT Student in an Organized Health Care Education/Training Program; ATTEND Internal Medicine
DX: L50.9 Urticaria, unspecified (principal); T45.1X5A Adverse effect of antineoplastic and immunosuppressive drugs, initial encounter; C50.912 Malignant neoplasm of unspecified site of left female breast; R13.10 Dysphagia, unspecified; D72.829 Elevated white blood cell count, unspecified; E86.9 Volume depletion, unspecified; Z90.13 Acquired absence of bilateral breasts and nipples
CPT/HCPCS: 96361; 96374; 96375; 96376; 99285; G0378; J1200; J2060; J2780; J2930; J7512

== ENCOUNTER → 2018-05-03 | Outpatient (CLI) | payer BC, OTHER | LOC: SBRMNEURO 21:30 | PROVIDERS: ATTEND Internal Medicine Pulmonary Disease | DX: G47.33 Obstructive sleep apnea (adult) (pediatric) (principal) ==